=== PATIENT | male | born 2000 | race African-American/Black ===

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

== ENCOUNTER 2021-02-06 15:26 | Emergency (ER) | payer OTHER | END 2021-02-06 16:36 | disposition home or self-care (01) | LOC: ERS 15:26 | DX: S00.83XA Contusion of other part of head, initial encounter (principal); M25.551 Pain in right hip; R07.89 Other chest pain; V80.010A Animal-rider injured by fall from or being thrown from horse in noncollision accident, initial encounter; Y93.52 Activity, horseback riding | CPT/HCPCS: 70450; 71045; 72170 ==